=== PATIENT | female | born 1985 | race Two or more races ===

== ENCOUNTER → 2024-04-12 | Outpatient (CLI) | payer BC, SELFPAY ==
[2024-04-12 10:41] LABS: Quantiferon-TB* See Sep Rpt
[2024-04-12 10:45] LABS: Misc Send Out* See Sep Rpt
[2024-04-12 11:34] LABS: Basophils # (Auto) 0.1 Thou/mm3 (0.0-0.2); Basophils % (Auto) 1 % (0-2.5); Eosinophils # (Auto) 0.1 Thou/mm3 (0.0-0.5); Eosinophils % (Auto) 1 % (0-10); Hematocrit 37.7 % (36.0-46.0); Hemoglobin 12.3 g/dL (12.0-16.0); Immature Granulocytes % (Auto) 0 % (0-0); Immature Granulocytes Auto 0.02 Thou/mm3 (0.00-0.00); Lymphocytes # (Auto) 2.5 Thou/mm3 (1.0-4.8); Lymphocytes % (Auto) 32 % (10-50); Mean Corpuscular HGB Conc 32.6 g/dl (31.0-37.0); Mean Corpuscular Hemoglobin 25.1 pg (25.0-35.0); Mean Corpuscular Volume 77 fL (80-100); Monocytes # (Auto) 0.4 Thou/mm3 (0.0-0.8); Monocytes % (Auto) 5 % (0-12); Neutrophils # (Auto) 4.7 Thou/mm3 (1.8-7.7); Neutrophils % (Auto) 61 % (37-80); Nucleated Red Blood Cell % 0 /100 WBC (0); Platelet Count 297 Thou/mm3 (140-440); RDW Standard Deviation 39.2 fL (36.4-46.3); White Blood Count 7.8 Thou/mm3 (3.6-11.0)
[2024-04-12 11:48] LABS: Sed Rate (ESR) 43 mm/hr (0-20)
[2024-04-12 11:55] LABS: Alanine Aminotransferase 18 U/L (10-49); Albumin, Serum 4.8 gm/dL (3.5-5.0); Albumin/Globulin Ratio 1.5 (1.2-2.2); Alkaline Phosphatase 79 U/L (46-116); Anion Gap 8 (7-16); Aspartate Amino Transferase 14 U/L (0-34); BUN/Creatinine Ratio 23 Ratio (12-20); Bilirubin,Total 0.4 mg/dL (0.3-1.2); Blood Urea Nitrogen 14 mg/dL (9-23); C-Reactive Protein 0.9 mg/dL (0.0-0.9); Calcium 9.5 mg/dL (8.3-10.6); Calcium (Corrected) 9.5 mg/dL (8.5-10.1); Carbon Dioxide 24.2 mMol/L (20.0-31.0); Chloride 104 mMol/L (98-107); Creatinine (Component) 0.6 mg/dL (0.6-1.3); Free T4 (Free Thyroxine) 1.28 ng/dL (0.89-1.76); Globulin 3.1 gm/dL (2.3-3.5); Glucose 85 mg/dL (74-106); Osmolality,Calculated 271 (275-295); Potassium 3.8 mMol/L (3.4-5.1); Sodium 136 mMol/L (136-145); Thyroid Stimulating Hormone 3.54 uIU/mL (0.55-4.78); Total Protein 7.9 gm/dL (5.7-8.2); eGFR > 60 See Note
[2024-04-12 12:36] LABS: Hepatitis A Antibody IgM Non Reactive (Non React); Hepatitis B Core Antibody IgM Non Reactive (Non React); Hepatitis B Surface Antigen Non Reactive (Non React); Hepatitis C Antibody Non Reactive (Non React)
[2024-04-12 13:58] LABS: Misc Send Out* See Sep Rpt
[2024-04-12 14:46] LABS: Cocci Serology, IgM Negative (Negative)
[2024-04-13 13:52] LABS: Cocci Serology, IgG Negative (Negative)
[2024-04-21 22:06] LABS: Sm Antibody <1.0 NEG AI (<1.0 NEGATIVE)
[2024-04-22 06:20] LABS: ANA Pattern NUCLEAR, CENTROMERE; ANA Screen, IFA POSITIVE (NEGATIVE); CCP Antibody (IgG)* <16 Units; Complement Component C3* 163 mg/dL (83-193); Complement Component C4c* 21 mg/dL (15-57); DNA (ds) Antibody* 8 IU/mL; HLA-B27 Antigen* NEGATIVE (NEGATIVE); Sm/RNP Antibody <1.0 NEG AI (<1.0 NEGATIVE); Thyroglobulin Antibodies* <1 IU/mL (< OR = 1); Thyroid Peroxidase Antibodies* <1 IU/mL (<9)
== END | disposition home or self-care (01) ==
LOC: COPL 09:46
PROVIDERS: PCP Family Medicine; Referring Provider Internal Medicine Rheumatology; Visit Provider Internal Medicine Rheumatology
DX: M25.50 Pain in unspecified joint (principal); R76.0 Raised antibody titer; R53.83 Other fatigue
CPT/HCPCS: 36415; 80053; 80074; 83520; 84439; 84443; 84481; 85025; 85652; 86038; 86039; 86140; 86160; 86200; 86225; 86235; 86331; 86376; 86480; 86635; 86800; 86812

== ENCOUNTER → 2024-07-28 | Outpatient (CLI) | payer MEDICARE, SELFPAY ==
--- NOTE | 2024-07-28 11:30 | XR_ITS ---
Examination: Abdomen sonogram, complete Date and time of exam: July 28, 2024 1145 hours INDICATIONS: Right upper abdominal pain beginning one month ago. Technique: Multiple real-time grayscale transabdominal sonographic images of the abdomen have been obtained. Findings: Normal gallbladder Normal common bile duct 0.3 cm Pancreatic head 3.1 cm Aorta not enlarged Liver 16.9 cm smooth contour fatty liver no focal liver lesions Normal hepatopedal portal venous flow Patent IVC Right kidney 10.8 cm renal cortex 1.2 cm Left kidney 10.4 cm cortex 1.2 cm No hydronephrosis Spleen 8.6 cm IMPRESSION: Normal gallbladder Mild hepatomegaly fatty liver
== END | disposition home or self-care (01) ==
PROVIDERS: PCP Family Medicine; Referring Provider Family Medicine; Visit Provider Family Medicine
DX: K76.0 Fatty (change of) liver, not elsewhere classified (principal)
CPT/HCPCS: 76700